=== PATIENT | male | born 1970 | race Caucasian/White ===

== ENCOUNTER 2019-09-12 21:16 | Emergency (ER) | payer MEDICARE, MEDICAID ==
[2019-09-12 22:08] VITALS: BP 107/77
--- NOTE | 2019-09-12 22:22 | PHYS DOC ---
Past History Past Medical History: Anxiety, Depression, Hypertension, Other Additional Past Medical Histor: glacoma, Past Surgical History: Other Additional Past Surgical Histo: Bilateral lower leg amputaion. Alcohol Use: Rarely Drug Use: None Adult General Chief Complaint Chief Complaint: EYE PROBLEMS HPI HPI 49-year-old male presents with bilateral eye pain. The patient has a history of glaucoma. He is on latanoprost once daily. He took his dose as she is supposed to 6 PM. Since that time, he is felt like he has bilateral eye pressure and pain. He is very sensitive to light. He does not believe his vision is changed. He denies fever, chills, cough, congestion, chance of foreign body in his eyes. He has bilateral lower extremity amputations. He has no other complaints at this time. Review of Systems Review of Systems Constitutional: Denies fever or chills [] Eyes: Bilateral eye pain and photosensitivity.[] HENT: Denies nasal congestion or sore throat [] Respiratory: Denies cough or shortness of breath [] Cardiovascular: No additional information not addressed in HPI [] GI: Denies abdominal pain, nausea, vomiting, bloody stools or diarrhea [] : Denies dysuria or hematuria [] Musculoskeletal: Denies back pain or joint pain [] Integument: Denies rash or skin lesions [] Neurologic: Denies headache, focal weakness or sensory changes [] Endocrine: Denies polyuria or polydipsia [] All other systems were reviewed and found to be within normal limits, except as documented in this note. Allergies Allergies Allergies Coded Allergies Type Severity Reaction Last Updated Verified No Known Drug Allergies 09/12/19 No Physical Exam Physical Exam Constitutional: Well developed, well nourished, no acute distress, non-toxic appearance. [] HENT: Normocephalic, atraumatic, bilateral external ears normal, oropharynx moist, no oral exudates, nose normal. [] Eyes: PERRLA, EOMI, conjunctiva mild erythema bilaterally, no discharge. Pupils are reactive as expected. No hazy cornea or shallow anterior chamber.[] Neck: Normal range of motion, no tenderness, supple, no stridor. [] Cardiovascular:Heart rate regular rhythm, no murmur [] Lungs & Thorax: Bilateral breath sounds clear to auscultation [] Abdomen: Bowel sounds normal, soft, no tenderness, no masses, no pulsatile masses. [] Skin: Warm, dry, no erythema, no rash. [] Back: No tenderness, no CVA tenderness. [] Extremities: No tenderness, no cyanosis, no clubbing, ROM intact, no edema. [] Neurologic: Alert and oriented X 3, normal motor function, normal sensory function, no focal deficits noted. [] Psychologic: Affect normal, judgement normal, mood normal. [] Current Patient Data Vital Signs Vital Signs Date Time Temp Pulse Resp B/P (MAP) Pulse Ox O2 Delivery O2 Flow Rate FiO2 09/12/19 22:08 88 16 107/77 (87) 97 Room Air 09/12/19 21:40 98.1 EKG EKG [] Radiology/Procedures Radiology/Procedures [] Course & Med Decision Making Course & Med Decision Making Pertinent Labs and Imaging studies reviewed. (See chart for details) The patient's exam is reassuring. I did talk to the patient's new mixer whipped topping, Dr. Rowland. He volunteered to come to the emergency room to evaluate the patient. He did not find any significant findings either. The patient's eye pressures were 12 and the right and 13 in the left. He does not recommend any further treatment at this time. If the patient continues to have discomfort overnight, he can be seen at the office at 8 AM tomorrow morning. I will let the patient no this. He is stable for discharge at this time. [] Dragon Disclaimer Dragon Disclaimer This electronic medical record was generated, in whole or in part, using a voice recognition dictation system. Departure Departure: Impression: Primary Impression: Pain of both eyes Additional Impression: Glaucoma Disposition: 01 HOME, SELF-CARE Condition: STABLE Referrals: OSEAS LIZ (PCP) Patient Instructions: Glaucoma, [id number] Problem Qualifiers Additional Impression: Glaucoma Glaucoma type: associated with underlying disease Laterality: bilateral Qualified Codes: H42 - Glaucoma in diseases classified elsewhere SHIRA HOLDEN DO Sep 12, 2019 22:22
== END 2019-09-13 00:20 | disposition home or self-care (01) ==
LOC: ER 21:16
DX: H57.13 Ocular pain, bilateral (principal); H42 Glaucoma in diseases classified elsewhere; F41.9 Anxiety disorder, unspecified; F32.9 Major depressive disorder, single episode, unspecified; I10 Essential (primary) hypertension
CPT/HCPCS: 99283

== ENCOUNTER → 2019-10-28 | Outpatient (CLI) | payer OTHER, MEDICAID ==
--- NOTE | 2019-10-28 16:39 | RAD ---
Five-view cervical spine series Clinical indications: Neck pain. FINDINGS:No acute fracture or discitis or lytic process or anterolisthesis is evident. There is narrowing of the right C3-4 and C4-5 neural foramina and the left C3-4 neural foramen. There is degenerative disc space narrowing and degenerative endplate spurring at C4-5 and C5-6 and C6-7. IMPRESSION: Mild degenerative cervical spondylosis. Electronically signed by: Gautam Blair MD (10/28/2019 4:36 PM) [facility]
== END | disposition home or self-care (01) ==
LOC: PMG 10:24
PROVIDERS: ATTEND Physician Assistant
DX: M47.812 Spondylosis without myelopathy or radiculopathy, cervical region (principal); M48.02 Spinal stenosis, cervical region
CPT/HCPCS: 72050

== ENCOUNTER → 2021-02-09 | Outpatient (CLI) | payer MEDICARE, MEDICAID ==
--- NOTE | 2021-02-09 16:58 | RAD ---
EXAM: Right shoulder, 4 views. HISTORY: Pain. Fall. COMPARISON: None. FINDINGS: 4 views of the right shoulder obtained. There is no fracture, dislocation or subluxation. IMPRESSION: No acute osseous finding. Electronically signed by: Fay Miles MD (02/09/2021 4:56 PM) [id number]
== END ==
LOC: DXRAD 16:34
PROVIDERS: ATTEND Nurse Practitioner Family
DX: M25.511 Pain in right shoulder (principal)
CPT/HCPCS: 73030

== ENCOUNTER → 2021-08-01 | Outpatient (CLI) | payer MEDICARE, MEDICAID ==
--- NOTE | 2021-08-01 14:10 | RAD ---
Right wrist x-rays 3 views HISTORY: Fall on outstretched hand, pain. FINDINGS: There is a small chronic ossicle adjacent of the ulna styloid at the ulnocarpal joint. No f racture. No dislocation. 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 IMPRESSION: No acute osseous injury. 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 Right hand x-rays 3 views HISTORY: Fall on outstretched hand, pain. FINDINGS: No fracture. No dislocation. No arthritic change of the hand. Soft tissues are unremarkable . IMPRESSION: No acute osseous injury. Electronically signed by: Santy King MD (08/01/2021 2:08 PM) [facility]
== END ==
LOC: RAD 13:03
PROVIDERS: ATTEND Nurse Practitioner Family
DX: M19.031 Primary osteoarthritis, right wrist (principal)
CPT/HCPCS: 73110; 73130